=== PATIENT | male | born 1935 | race Caucasian/White ===

== ENCOUNTER 2018-07-19 20:35 | Inpatient (IN) | payer MEDICARE ==
[~2018-07-19] VITALS: Ht 182.8 cm; Wt 81.6 kg
--- NOTE | ~2018-07-19 | EKG ---
[place], [place] ELECTROCARDIOGRAM REPORT NAME: SARAH BETH COVARRUBIAS UNIT #: [id number] ROOM: 421 DOCTOR: NAM DRAFT REPORT BIRTHDATE: [birth year] [facility] Test Date: 2018-07-19 Test Time: 21:07:08 Pat Name: SARAH BETH COVARRUBIAS Department: Room: 421 Gender: M Employment Clerk: Perla Batres : 1935 Requested By: DONTE RAMOS Order Number: [id number] Reading MD: Mitra Ackerman MD Measurements Intervals [place] Rate: 90 P: 8 SD: 175 QRS: 0 QRSD: 124 T: 130 QT: 407 QTc: 498 Interpretive Statements Sinus rhythm Ventricular bigeminy Nonspecific intraventricular conduction delay Inferior infarct, old Minimal ST elevation, anterior leads Lateral leads are also involved Electronically Signed On 07-20-2018 15:58:08 PST by Mitra Ackerman MD CM:EKGRPT:ELECTROCARDIOGRAM REPORT [id number] DONTE BOWERS DRAFT REPORT DONTE RAMOS DO
[2018-07-19 20:38] VITALS: BP 111/54
[2018-07-19 21:18] LABS: BASO # 0.1 10*3/uL (0.0-0.1); BASO % 0.6 % (0.0-1.0); EOS # 0.8 10*3/uL (0.0-0.4); EOS % 8.7 % (1.0-4.0); HEMATOCRIT 45.2 % (42.0-52.0); HEMOGLOBIN 15.1 g/dl (14.0-18.0); LYMPH # 1.9 10*3/uL (1.3-4.4); LYMPH % 21.3 % (27.0-41.0); MEAN CORPUSCULAR HGB 30.1 pg (27.0-31.0); MEAN CORPUSCULAR HGB CONC 33.4 g/dl (33.0-37.0); MEAN PLATELET VOLUME 11.2 fl (9.6-12.3); MONO # 1.1 10*3/uL (0.1-1.0); MONO % 12.9 % (3.0-9.0); NEUT # 4.9 10*3/uL (2.3-7.9); NEUT % 56.3 % (47.0-73.0); PLATELET COUNT AUTOMATED 121 10*3/uL (130-400); RED BLOOD COUNT 5.02 10*6/uL (4.50-5.90); RED CELL DISTRI WIDTH 14.6 % (0-14.5); WHITE BLOOD COUNT 8.8 10*3/uL (4.8-10.8)
[2018-07-19 21:20] VITALS: BP 119/57
--- NOTE | 2018-07-19 21:25 | NUR ---
LACTIC ACID 2.7 PER LAB,DR RAMOS NOTIFIED.
[2018-07-19 21:36] LABS: ALBUMIN 2.8 gm/dl (3.1-4.5); CREATININE 1.46 mg/dL (0.70-1.30); POTASSIUM 3.9 mmol/L (3.5-5.1); TOTAL PROTEIN 6.9 gm/dL (6.4-8.2); TROPONIN I 0.023 ng/ml (<0.045)
[2018-07-19] MEDS ORDERED: CARVEDILOL6.25 MG PO (22:05)
[2018-07-19] MEDS ORDERED: GLIMEPIRIDE4 M1 PO (22:06)
[2018-07-19] MEDS ORDERED: NEURONTIN300 MG PO (22:06)
[2018-07-19] MEDS ORDERED: PREDNISONE10 MG PO (22:06)
[2018-07-19] MEDS ORDERED: SPIRIVA RESPIMAT4 GM INH (22:07)
[2018-07-19] MEDS ORDERED: BREO ELLIPTA 11 EACH INH (22:07)
[2018-07-19] MEDS ORDERED: ASPIRIN CHEWABL81 MG PO (22:08)
[2018-07-19] MEDS ORDERED: LIPITOR20 MG PO (22:09)
[2018-07-19 22:10] VITALS: BP 95/41
--- NOTE | 2018-07-19 22:28 | NUR ---
LAB CALLED WITH POSITIVE INFLUENZA "A" RESULT. NOTIFIED.
[2018-07-19 22:31] VITALS: BP 104/53
--- NOTE | 2018-07-19 22:36 | NUR ---
PT + FOR FLU A. PT PLACED IN DROPLET PRECAUTIONS. PT AND VOICED UNDERSTANDING.---AMANDA LAZARO RN
[2018-07-19 23:20] VITALS: BP 117/54
--- NOTE | 2018-07-19 23:20 | NUR ---
A 83, admitted to , under the services of CORIE Castro DO with a diagnosis of FLU A+ DEHYDRATION. Chief complaint is FLU LIKE SYMPTOMS. Patient arrived via bed from ER. Monitor applied. Initial assessment completed. Vital signs taken and recorded. CORIE CASTRO DO notified of admission to the unit. Orders received. See assessment for past medical history, medications and allergies. Patient and/or family oriented to unit. [facility] Clothing/patient valuable form completed. ROSALIA PEÑA
--- NOTE | 2018-07-19 23:40 | NUR ---
DR. CRYSTAL NOTIFIED THAT MEDICATIONS ARE ALL CORRECT AND PATIENT WILL NEED NEUROTIN TONIGHT
--- NOTE | 2018-07-19 23:46 | NUR ---
DR. BARRIGA NOTIFIED OF PATIENT LACTIC LEVEL AND NOTIFIED THAT PATIENT WISHES TO BE A FULL CODE
[2018-07-20] VITALS: BP 117/54
[2018-07-20 03:43] LABS: BASO # 0.1 10*3/uL (0.0-0.1); BASO % 0.6 % (0.0-1.0); EOS # 0.7 10*3/uL (0.0-0.4); EOS % 8.6 % (1.0-4.0); HEMATOCRIT 41.5 % (42.0-52.0); HEMOGLOBIN 13.4 g/dl (14.0-18.0); LYMPH # 1.9 10*3/uL (1.3-4.4); LYMPH % 24.4 % (27.0-41.0); MEAN CELL VOLUME 91.8 fl (80.0-94.0); MEAN CORPUSCULAR HGB 29.6 pg (27.0-31.0); MEAN CORPUSCULAR HGB CONC 32.3 g/dl (33.0-37.0); MONO # 1.1 10*3/uL (0.1-1.0); MONO % 14.6 % (3.0-9.0); NEUT % 51.5 % (47.0-73.0); PLATELET COUNT AUTOMATED 99 10*3/uL (130-400); RED BLOOD COUNT 4.52 10*6/uL (4.50-5.90); RED CELL DISTRI WIDTH 14.6 % (0-14.5); WHITE BLOOD COUNT 7.8 10*3/uL (4.8-10.8)
[2018-07-20 03:54] LABS: ACT PARTIAL THROMBO TIME 25.1 SECONDS (20.8-31.5); INTERNATIONAL NORM RATIO 1.1 (2.0-3.5)
[2018-07-20 04:01] LABS: ALBUMIN 2.7 gm/dl (3.1-4.5); BUN 19 mg/dl (7-24); CHLORIDE 112 mmol/L (98-107); CHOLESTEROL 155 mg/dL (<200); CREATININE 1.26 mg/dL (0.70-1.30); SGOT/AST 20 IU/L (3-35); SGPT/ALT 15 U/L (12-78); SODIUM 145 mmol/L (136-145); TRIGLYCERIDES 84 mg/dl (<150); VLDL CHOLESTEROL 17 mg/dL (6-40)
[2018-07-20 04:03] LABS: ALKALINE PHOSPHATASE 90 U/L (45-117); HDL CHOLESTEROL 31 mg/dl (40-60); LDL CHOLESTEROL 107 mg/dL (9-159); PHOSPHOROUS 3.3 mg/dL (2.5-4.9); TOTAL PROTEIN 5.9 gm/dL (6.4-8.2)
[2018-07-20 04:06] LABS: FREE T4 1.15 ng/dl (0.76-1.46)
--- NOTE | 2018-07-20 04:10 | NUR ---
0000 AT BEDSIDE. PT IS AFEBRILE. ISOLATION STARTED. IV FLUIDS STARTED. 0200 RESTING NI BED WITH EYES CLOSED. APPEARS TO BE SLEEPING. 0400 REMAINS SLEEPING WITHOUT DISTRESS.
--- NOTE | 2018-07-20 06:15 | NUR ---
REMAINS WITHOUT C/O'S. IV FLUIDS CONT. SLEPT WELL THIS SHIFT.
[2018-07-20 06:58] LABS: VITAMIN D, 25-HYDROXY 18.2 ng/mL (30-100)
[2018-07-20 08:00] VITALS: BP 112/58
--- NOTE | 2018-07-20 08:30 | NUR ---
Patient resting quietly with no c/o discomfort. Respirations easy and regular. Vital signs stable. No overt distress. MAX OVIEDO R
--- NOTE | 2018-07-20 09:00 | NUR ---
case management attempted to visit with patient, patient was bathing at this time, case managment called patient's to discuss a discharge plan, number on chart was disconnected, will see patient at a later time today
--- NOTE | 2018-07-20 11:07 | NUR ---
PHYSICAL THERAPY PROGRESS NOTE: Pt was seen for initial evaluation while on 4th floor with moderate complexity determined. Pt completed all aspects of bed mobility and transfers at modified independent level. He presents with fair+ dynamic standing balance and required CGA for 10'x 2 ambulation due to balance deficits. Pt reports planning to return to community wellness program at PT clinic, but due to unsteadiness would recommend short term home health PT services prior to return to community to ensure safe return without fall risk. Thank you for this referral. Mariluz Key, PT
[2018-07-20] MEDS ORDERED: TAMIFLU30 MG PO (11:41)
--- NOTE | 2018-07-20 12:10 | NUR ---
Discharge instructions reviewed with patient/family. Patient receptive and verbalizes understanding. Follow-up care arranged. Written instructions given to patient/family. MAX OVIEDO
--- NOTE | 2018-07-20 12:24 | NUR ---
case management attempted to visit with patient, patient was discharged to home at this time, no home needs
[2018-12-05] MEDS ORDERED: PROTONIX TR40 M1 PO (14:25)
[2018-12-05] MEDS ORDERED: Carafate1 GM PO (14:25)
== END 2018-07-20 12:10 | disposition home or self-care (01) | DRG 193 ==
LOC: ED 20:35 → EDHOLD 22:39 → 4E 22:49
PROVIDERS: Family Medicine; Student in an Organized Health Care Education/Training Program; ADMIT Internal Medicine
DX: J10.1 Influenza due to other identified influenza virus with other respiratory manifestations (principal); N17.0 Acute kidney failure with tubular necrosis; E43 Unspecified severe protein-calorie malnutrition; I25.810 Atherosclerosis of coronary artery bypass graft(s) without angina pectoris; E87.2 Acidosis; D69.6 Thrombocytopenia, unspecified; E87.8 Other disorders of electrolyte and fluid balance, not elsewhere classified; J44.9 Chronic obstructive pulmonary disease, unspecified; J61 Pneumoconiosis due to asbestos and other mineral fibers; E11.9 Type 2 diabetes mellitus without complications; E86.0 Dehydration; Z86.73 Personal history of transient ischemic attack (TIA), and cerebral infarction without residual deficits; Z95.5 Presence of coronary angioplasty implant and graft; Z87.891 Personal history of nicotine dependence; Z99.81 Dependence on supplemental oxygen; Z82.49 Family history of ischemic heart disease and other diseases of the circulatory system; Z79.82 Long term (current) use of aspirin; Z79.899 Other long term (current) drug therapy; Z68.24 Body mass index [BMI] 24.0-24.9, adult